=== PATIENT | female | born 1945 | race Caucasian/White ===

== ENCOUNTER → 2016-09-26 | Outpatient (CLI) | payer MEDICARE, OTHER ==
[~2016-09-26] MED LIST: ASCORBIC ACID500 M4 PO; COQ-10200 MG PO; LIPITOR40 MG PO; MULTI-DAY VITAM1 TAB PO; OSTEO BI-FLEX1 EAC1 PO; VIT B12 PO; VIT E PO; VITAL-D RX TABL1 TAB PO; ZESTRIL10 M1 PO
--- NOTE | ~2016-09-26 | MY29 ---
[facility] A Service of [facility] RADIOLOGY TEXT RESULTS PATIENT: ALEC HAHN LOCATION: [facility] : 43 UNIT #: [id number] AGE: [address]: She Forde APRN SEX: F ORDER DR: [id number] [facility] [address] [place], [place] [address] [id number] O MR#: [id number] Acc #: [id number] NAME: ALEC HAHN. : 1945 SEX: F STUDY DATE/TIME: 09/26/2016 8:13 UNIT: [facility] ROOM: STUDY DESCRIPTION: MY LEON SCREENING W/ CAD BILAT Attending Physician: She Forde A.P.R.N. Referring Physician: She Forde A.P.R.N. Ordering Physician: She Forde A.P.R.N. Primary Care Physician: She Forde A.P.R.N. MEDICAL IMAGING REPORT This report is preliminary unless electronic signature is present EXAM Digital screening mammogram 09/26/2016 [facility] HISTORY 71-year-old woman; no known risk elevation. Patient does indicate grandmother with breast cancer? Annual screening. COMPARISON Comparison mammograms date to 11/07/2005, with most recent 08/26/2015. FINDINGS Digital imaging of each breast was completed, utilizing screening protocol. Review includes FDA-approved CAD device. Breast parenchyma is partially fatty replaced and mildly heterogeneous. Benign calcifications in each breast are stable. There is no interval occurring breast mass and no suspicious microcalcifications. There is no architectural distortion. IMPRESSION Negative mammogram. Annual screening recommended. Patients over the age of 40 are entered into a reminder system with target due date for the next mammogram. A result letter will also be sent to the patient. BIRADS: 1 Negative Dictated by... Flip Lopez M.D. THIS IS AN ELECTRONICALLY VERIFIED REPORT [facility] A Service of [facility] RADIOLOGY TEXT RESULTS PATIENT: ALEC HAHN LOCATION: [facility] : 43 UNIT #: [id number] AGE: [address]: She Forde APRN SEX: F ORDER DR: Flip Lopez M.D. at 09/26/2016 1:10 PM Pawan TD: 09/26/2016 12:07 JOB #: [id number] MEDICAL IMAGING REPORT Page 1 of 1 COPY
== END | disposition home or self-care (01) ==
LOC: CWCC 07:54
DX: Z12.31 Encounter for screening mammogram for malignant neoplasm of breast (principal)
CPT/HCPCS: G0202